=== PATIENT | female | born 1960 | race American Indian/Alaskan Native ===

== ENCOUNTER 2017-04-12 11:20 | Outpatient (CLI) | payer OTHER ==
--- NOTE | 2017-04-12 14:34 | XRay Report ---
LEFT HIP RADIOGRAPHS INDICATION: Hip and knee problem. COMPARISON: None similar. FINDINGS: An AP pelvic radiograph with frog-leg projection of the left hip demonstrate normal femoral head contours. Bilateral hip joint narrowing may though be present. Intact bilateral SI joints. Nonobstructive bowel gas pattern. CONCLUSION: Bilateral hip degenerative changes without acute radiographic abnormality. Thank you for the opportunity to participate in this patient's care.
--- NOTE | 2017-04-12 18:30 | XRay Report ---
FINAL REPORT EXAM: XR WRIST 2V RT HISTORY: WRIST,HIP AND KNEE PROBLEM TECHNIQUE: Right wrist 2 views PRIORS: None. FINDINGS: Carpal bones maintain normal alignment. No acute fracture is identified. The distal radius and ulna are intact. IMPRESSION: Negative wrist series
--- NOTE | 2017-04-12 21:24 | XRay Report ---
FINAL REPORT PROCEDURE: XR KNEE 1-2V RT TECHNIQUE: RIGHT knee radiographs, AP and lateral views. CPT 60025 HISTORY: HIP AND KNEE pain COMPARISON: No prior studies are available for comparison. FINDINGS: No fracture, dislocation or joint effusion is visualized. Small marginal osteophytic spurs are seen in the medial compartment of the knee and patellar femoral joint space consistent with mild osteoarthritis. Joint spaces otherwise well preserved. Bone density appears normal. IMPRESSION: Minimal osteoarthritis otherwise negative exam.
--- NOTE | 2017-04-12 21:25 | XRay Report ---
FINAL REPORT PROCEDURE: Three-view lumbar sacral spine series TECHNIQUE: Lumbar spine radiographs, including AP, lateral, and lumbosacral spot views. CPT 47853 HISTORY: BACK,HIP AND KNEE PROBLEM COMPARISON: No prior studies are available for comparison. FINDINGS: No fracture or subluxation is visualized. The posterior elements are intact. There are small anterior osteophytic spurs present throughout the disc spaces of the lumbar spine. Height of the disc spaces is well preserved. There is moderate facet arthritis visualized inferiorly. Mild to moderate arthritic change visualized in the right SI joint. 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 Degenerative changes right SI joint. No evidence of fracture or subluxation..
== END 2017-04-12 11:21 | disposition home or self-care (01) ==
LOC: XRAY 11:20
PROVIDERS: ATTEND Internal Medicine
DX: M51.36 Other intervertebral disc degeneration, lumbar region (principal); M17.11 Unilateral primary osteoarthritis, right knee; M16.0 Bilateral primary osteoarthritis of hip; M47.896 Other spondylosis, lumbar region; M25.531 Pain in right wrist
CPT/HCPCS: 72100